=== PATIENT | male | born 2005 | race Caucasian/White ===

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

== ENCOUNTER 2024-05-24 19:30 | Emergency (ER) | payer BC ==
[2024-05-24] MEDS: predniSONE 20 MG Tab PO ONE (19:59)
== END 2024-05-24 20:00 | disposition home or self-care (01) ==
LOC: JD.ED 19:30
DX: J03.90 Acute tonsillitis, unspecified (principal)
CPT/HCPCS: 99283; J7512